=== PATIENT | male | born 1940 | race Caucasian/White ===

== ENCOUNTER 2016-09-30 08:41 | Emergency (ER) | payer OTHER ==
[2016-09-30 08:56] VITALS: BP 180/94; PULSE 78; RESP 20; TEMP 98; O2SAT 98
[2016-09-30 09:19] LABS: ANION GAP 11 mEq/L (8-16); CALCIUM 8.9 mg/dL (8.5-10.4); CARBON DIOXIDE 26 mEq/l (22-31); CHLORIDE 102 mEq/L (97-110); CREATININE 0.8 mg/dL (0.7-1.3); GLOMERULAR FILTRATION RATE > 60; GLUCOSE 108 mg/dL (70-100); POTASSIUM 4.3 mEq/L (3.5-5.2); SODIUM 139 mEq/L (134-144); URIC ACID 4.7 mg/dL (3.5-8.5)
--- NOTE | 2016-09-30 09:21 | UCPHY ---
H & P Time Seen by Provider: 09/30/16 09:07 Patient Type: New HPI/ROS: This patient presents with a chief complaint of right foot pain which began yesterday and which he localizes to the dorsum of the midfoot. He has noticed that movement of his toes and also weight-bearing are quite painful. He has had no fever no constitutional symptoms. He denies any previous episodes of anything similar related to this area of his body. Smoking Status: Never smoked Physical Exam: This is a well-developed well-nourished male who is in no acute distress except when attempting to walk when he appears to be in a great deal of discomfort. Examination of the foot reveals some erythema over the midfoot and forefoot with some warmth and tenderness. There is only minimal swelling if any. There is also tenderness at the 1st MP joint but without erythema or swelling. CMS is intact. The patient does have a bunion. Constitutional: Initial Vital Signs Temperature (C) 36.6 C 09/30/16 08:53 Heart Rate 78 09/30/16 08:53 Respiratory Rate 20 09/30/16 08:53 Blood Pressure 180/94 H 09/30/16 08:53 O2 Sat (%) 98 09/30/16 08:53 O2 Delivery Mode Room Air Allergies/Adverse Reactions: morphine Allergy (Intermediate, Verified 05/14/13 11:37) HALLUCINATIONS Sulfa (Sulfonamide Antibiotics) Allergy (Intermediate, Verified 03/09/11 14:20) Hives MILK AND ICE CREAM Allergy (Mild, Uncoded 03/09/11 14:20) STOMACH ACHE Home Medications: Medication Instructions Recorded Cephalexin [Keflex] 500 mg PO QID #28 cap 09/30/16 Pradaxa 09/30/16 oxyCODONE/APAP 5/325 [Percocet 1 tab PO Q4-6PRN PRN #15 tab 09/30/16 5/325 (RX)] Medical Decision Making - Diagnostics Imaging: X-rays of the right foot are unremarkable showing 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 Differential Diagnosis: Because of this patient's pain is currently unclear however I do not believe it is gout based on the lack of erythema and swelling at the 1st MPT joint. There is no suggestion of a neurovascular cause but because of the erythema warmth and tenderness I am treating him presumptively for a cellulitis. - Data Points Laboratory Results: Laboratory Results 09/30/16 08:59 09/30/16 08:59 Sodium 139 mEq/L (134-144) Potassium 4.3 mEq/L (3.5-5.2) Chloride 102 mEq/L (97-110) Carbon Dioxide 26 mEq/l (22-31) Anion Gap 11 mEq/L (8-16) BUN 9 mg/dL (7-23) Creatinine 0.8 mg/dL (0.7-1.3) Estimated GFR > 60 Glucose 108 H mg/dL (70-100) Uric Acid 4.7 mg/dL (3.5-8.5) Calcium 8.9 mg/dL (8.5-10.4) Departure - Departure Disposition: Home, Routine, Self-Care Clinical Impression: Foot pain, right Condition: Good Instructions: Cellulitis (ED) Additional Instructions: If your symptoms have not improved in 2 days you should be re-evaluated. If at any time you feel that your symptoms are worsening such as increased pain, increased swelling or fever you should return immediately. Keep her foot elevated as much as possible and apply warm compresses frequently throughout the day. Minimize your activities. Adult Pain & Fever Control: We recommend Acetaminophen (Tylenol) and Ibuprofen (Motrin, Advil) for pain and fever control. When fever is high or pain severe, both drugs can be used at the same time, but at different intervals. Please note the time differences. Your dose is: Acetaminophen [650]mg every 4 to 6 hours ibuprofen [600]mg every [6] hours with food OR naproxen Sodium (Aleve) [440]mg every 12 hours. Note: do not take Acetaminophen with Hydrocodone (Vicodin, Lortab) or Oxycodone (Percocet). These medications also contain Acetaminophen. No more than 3000 mg of Acetaminophen should be taken in 24 hours (for an adult) . The maximal dose of ibuprofen that it is safe in a 24-hour period is 2400 mg. You may take 400 mg every 4 hours, 600 mg every 6 hours or 800 mg every 8 hours safely. Referrals: Roderick Banegas MD [Primary Care Provider] - As per Instructions Prescriptions: Cephalexin [Keflex] 500 mg PO QID #28 cap oxyCODONE/APAP 5/325 [Percocet 5/325 (RX)] 1 tab PO Q4-6PRN PRN #15 tab PRN Reason: pain - PQRS PQRS Measurement: Not applicable
--- NOTE | 2016-09-30 09:46 | DX ---
Right Foot, Three Views History: Pain without trauma. Findings: Large bunion over the medial aspect of the first metatarsal head contains faint soft tissue calcifications, and the surface of the bone appears mildly eroded. Diagnostic considerations include gout. Osteomyelitis is less likely. Hallux valgus is moderate. The joint space of the first metatars al joint is well preserved. No fracture. Lateral view shows a large plantar calcaneal spur. Impression: 1. Hallux valgus. 2. Bunion of first metatarsal head. 3. Possible gout. 4. Large plantar calcaneal spur.
== END 2016-09-30 10:07 | disposition home or self-care (01) ==
LOC: CED 08:41
DX: M20.11 Hallux valgus (acquired), right foot (principal); M21.611 Bunion of right foot; M77.31 Calcaneal spur, right foot
CPT/HCPCS: 73630; G0463; 80048-PO; 84550-PO; 99202-PO

== ENCOUNTER → 2017-12-06 | Outpatient (CLI) | payer OTHER | LOC: BRMIMAGING 11:45 | PROVIDERS: ATTEND Internal Medicine | DX: M19.041 Primary osteoarthritis, right hand (principal); M19.042 Primary osteoarthritis, left hand | CPT/HCPCS: 73130-PO ==

== ENCOUNTER → 2018-06-21 | Outpatient (CLI) | payer OTHER | LOC: BRMIMAGING 15:23 | PROVIDERS: ATTEND Internal Medicine | DX: M16.11 Unilateral primary osteoarthritis, right hip (principal) | CPT/HCPCS: 73502-PO ==

== ENCOUNTER → 2018-07-26 | Outpatient (CLI) | payer OTHER | LOC: CIMAGING 12:17 | PROVIDERS: ATTEND Internal Medicine Hematology & Oncology | DX: R05 Cough (principal); C43.9 Malignant melanoma of skin, unspecified | CPT/HCPCS: 71046-PO ==

== ENCOUNTER 2018-10-28 12:41 | Emergency (ER) | payer OTHER ==
--- NOTE | 2018-10-28 12:59 | EDPHY ---
H & P Time Seen by Provider: 10/28/18 12:56 HPI/ROS: Chief Complaint: Back injury HPI: 78-year-old male states that he was up on a ladder yesterday cleaning out his gutters when he missed a step coming down a fell backwards landing on his tailbone and striking his head. He did not have a loss of consciousness. He is not on blood thinners. He is complaining of pain in his tailbone. Hurts to sit. He has taken ibuprofen without significant relief. No neck pain. No chest pain. No abdominal pain. No extremity injury. No shortness of breath. Denies any other injuries. He has been ambulating without any difficulty. No numbness or weakness. No difficulty urinating. He has not had a bowel movement today. ROS: 10 systems were reviewed and were negative except those elements noted in the HPI. PMH: Rheumatoid arthritis, knee replacement Social History: No smoking, no alcohol, no recreational drug use Family History: non-contributory Physical Exam: Gen: Awake, Alert, Airway Intact HEENT: Head: Small abrasion on the vertex, no bony tenderness or step-offs Eyes: PERRLA, EOMI Nose: No epistaxis Mouth: Normal dentition, Airway patent Face: No deformity Neck: non-tender, no stepoff, Full ROM without pain Chest: non-tender, lungs CTA Heart: normal heart tones Abd: soft, non-tender, atraumatic Pelvis: non-tender, stable to AP and Lateral compression Back: atraumatic, patient has some moderate midline tenderness in the lower thoracic spine and mid lumbar spine. There is also coccyx tenderness. No deformity. Ext: atramatic, full ROM Skin: no rash Neuro: CN II-XII intact, Strength 5/5 in all extremities, sensation intact in all extremities - Medical/Surgical History Hx Asthma: No Hx Chronic Respiratory Disease: No Hx Diabetes: No Hx Cardiac Disease: No Hx Renal Disease: No Hx Cirrhosis: No Hx Alcoholism: No Hx HIV/AIDS: No Hx Splenectomy or Spleen Trauma: No Other PMH: HTN/Tremors/. rheumatoid arthritis. knee replacement, bunions removed Jul 2017, left rotator cuff replament over 20 years. - Social History Smoking Status: Never smoked Constitutional: Initial Vital Signs Temperature (C) 36.4 C 10/28/18 12:48 Heart Rate 68 10/28/18 12:48 Respiratory Rate 18 10/28/18 12:48 Blood Pressure 146/83 H 10/28/18 12:48 O2 Sat (%) 94 10/28/18 12:48 O2 Delivery Mode Nasal Cannula Allergies/Adverse Reactions: morphine Allergy (Intermediate, Verified 05/14/13 11:37) HALLUCINATIONS Sulfa (Sulfonamide Antibiotics) Allergy (Intermediate, Verified 03/09/11 14:20) Hives MILK AND ICE CREAM Allergy (Mild, Uncoded 03/09/11 14:20) STOMACH ACHE Home Medications: Medication Instructions Recorded Aspirin EC [Aspirin EC 81 mg (*)] 81 mg PO DAILY 04/15/18 Folic Acid [Folic Acid 1 MG (*)] 1 mg PO DAILY 04/15/18 Lisinopril [Zestril 10 mg (*)] 10 mg PO DAILY 04/15/18 Methotrexate Sodium [Rheumatrex] 10 mg PO SMITH@09,19 04/15/18 Primidone [Primidone 250mg (*)] 250 mg PO QID 04/15/18 oxyCODONE/APAP 5/325 [Percocet 1 - 2 tab PO Q4HRS PRN 04/15/18 5/325 (*)] Colchicine [Colchicine (*)] 0.6 mg PO BID #60 ea 04/17/18 predniSONE 40 mg PO DAILY #60 tablet 04/17/18 Hydrocodone/Acetaminophen 1 - 2 each PO Q4-6PRN PRN #10 10/28/18 [Hydrocodon-Acetaminophen 5-325] tablet Medical Decision Making - Diagnostics Imaging Results: Imaging Impressions Lumbar Spine X-Ray 10/28/18 12:53 Impression: 1. Acute minimal (less than 20%) compression fractures at L1 and L2. 2. No retropulsed component. 3. Minimal irregularity at the sacrococcygeal junction. No definite fracture. Sacrum and Coccyx X-Ray 10/28/18 12:53 Impression: Minimal irregularity at lower sacrum at the left lumbosacral junction. No definite fracture. Thoracic Spine X-Ray 10/28/18 12:53 Impression: No acute thoracic spine fracture. ED Course/Re-evaluation: X-ray is noted. Patient's pain is managed. Will send him home with oral analgesia, referral to spine. Patient is ambulatory without any difficulty emergency department. Departure - Departure Disposition: Home, Routine, Self-Care Clinical Impression: Lumbar compression fracture Condition: Good Instructions: Thoracolumbar Fracture (ED), Sacral Fracture (ED) Additional Instructions: Take ibuprofen, 600 mg every 8 hr. You may alternate with acetaminophen, 1000 mg every 8 hr. You may take hydrocodone with acetaminophen for uncontrolled pain. Make sure you take MiraLax every day to prevent constipation. Follow up with Neurosurgery in 3-4 days for further evaluation. Referrals: Roderick Banegas MD [Primary Care Provider] - As per Instructions Saúl Nolasco MD [Medical Doctor] - As per Instructions Prescriptions: Hydrocodone/Acetaminophen [Hydrocodon-Acetaminophen 5-325] 1 - 2 each PO Q4- 6PRN PRN #10 tablet PRN Reason: Pain, Severe
[2018-10-28 14:33] VITALS: BP 147/107
== END 2018-10-28 14:29 | disposition home or self-care (01) ==
LOC: CED 12:41
DX: S32.010A Wedge compression fracture of first lumbar vertebra, initial encounter for closed fracture (principal); S32.020A Wedge compression fracture of second lumbar vertebra, initial encounter for closed fracture; W11.XXXA Fall on and from ladder, initial encounter; Y93.H9 Activity, other involving exterior property and land maintenance, building and construction; Y92.018 Other place in single-family (private) house as the place of occurrence of the external cause; M06.9 Rheumatoid arthritis, unspecified; I10 Essential (primary) hypertension; Z96.659 Presence of unspecified artificial knee joint; Z88.2 Allergy status to sulfonamides
CPT/HCPCS: 72070-PO; 72100-PO; 72220-PO; 99284-ER